=== PATIENT | male | born 1960 | race Two or more races ===

== ENCOUNTER 2025-05-11 22:50 | Emergency (ER) | payer MEDICARE, OTHER ==
[~2025-05-11] VITALS: Ht 177.8 cm; Wt 68.0 kg
[2025-05-11] MEDS ORDERED: DIATR MEGLU/DIATRIZOATE SODIUM 30 ML BOTTLE (GASTROGRAPHIN) ONE (23:52)
[2025-05-12] MEDS ORDERED: METOPROLOL TARTRATE 50 MG TABLET ONE (01:26)
[2025-05-12] MEDS: METOPROLOL TARTRATE 25 MG TABLET GT ONE (01:30)
[2025-05-12] MEDS ORDERED: ACETAMINOPHEN ES 500 MG TABLET ONE (02:04)
[2025-05-12] MEDS: ACETAMINOPHEN ES 500 MG TABLET GT ONE (02:12)
[2025-05-12 02:16] LABS: PLATELET COUNT (AUTO) 219 K/uL (150-450); RED BLOOD CELL COUNT(AUTO) 4.19 MIL/uL (4.5-6.0); RED CELL DISTRIBUTION WIDTH 16.7 % (11.5-15.0); WHITE BLOOD COUNT (AUTO) 4.6 K/uL (4.3-11.0)
[2025-05-12 02:29] LABS: ASPARTATE AMINOTRANSFERASE 27.0 U/L (15-37); CALCIUM, SERUM 9.1 mg/dL (8.5-10.1); CREATININE 0.6 mg/dL (0.6-1.3); SODIUM SERUM 144.0 mmol/L (136-145); TOTAL PROTEIN, SERUM 7.6 g/dL (6.4-8.2); UREA NITROGEN, BLOOD 11.0 mg/dL (7-18)
[2025-05-12 02:53] VITALS: BP 137/96; TEMP 212.4; O2SAT 99
== END 2025-05-12 02:53 ==
LOC: ER 22:53
DX: K94.20 Gastrostomy complication, unspecified (principal); G40.909 Epilepsy, unspecified, not intractable, without status epilepticus; E78.5 Hyperlipidemia, unspecified; E11.9 Type 2 diabetes mellitus without complications; N40.0 Benign prostatic hyperplasia without lower urinary tract symptoms; Z86.73 Personal history of transient ischemic attack (TIA), and cerebral infarction without residual deficits; Z88.8 Allergy status to other drugs, medicaments and biological substances; Z87.09 Personal history of other diseases of the respiratory system; Z87.19 Personal history of other diseases of the digestive system; Z87.39 Personal history of other diseases of the musculoskeletal system and connective tissue; Z86.59 Personal history of other mental and behavioral disorders
CPT/HCPCS: 99285; 43762; 74018; 71045; 93005; 85025; 83735; 36415; 80053; Q9963